=== PATIENT | male | born 1995 | race Caucasian/White ===

== ENCOUNTER 2017-04-19 15:45 | Emergency (ER) | payer BC ==
[~2017-04-19] VITALS: Ht 177.8 cm; Wt 87.0 kg
[2017-04-19 15:47] VITALS: TEMP 37; Ht 177.8 cm; Wt 87.0 kg
[2017-04-19] MEDS ORDERED: SODIUM CHLORIDE 0.9% 1000ML 1,000 ML IV STA (16:25)
[2017-04-19] MEDS ORDERED: CYAN1CAP3 PO (16:25)
[2017-04-19] MEDS ORDERED: MULT-506 PO (16:25)
[2017-04-19] MEDS ORDERED: KETOROLAC TROMETHAMINE 30 MG/ML VIAL IV STA (16:25)
[2017-04-19] MEDS ORDERED: ACET-1256 PO (16:25)
[2017-04-19] MEDS ORDERED: ONDANSETRON INJ 2 MG/ML 2 ML VIAL IV STA ×2 (16:25)
[2017-04-19 17:17] LABS: BUN/CREATININE RATIO 11.3 (10-20); CALCIUM 9.2 mg/dl (8.5-10.1); POTASSIUM 3.8 mmol/L (3.5-5.1)
[2017-04-19 17:27] LABS: BASO % 0.6 %; BASO ABS # 0.04 K/uL (0-0.2); COMPLETE YES; EOS % 2.9 %; HEMATOCRIT 43.1 % (42-52); LYMPH % 36.8 %; LYMPH ABS # 2.53 K/uL (1.2-3.4); MEAN CELL VOLUME 83.5 fL (80-100); MEAN CORPUSCULAR HEMOGLOBIN 28.9 pg (25-34); MEAN CORPUSCULAR HGB CONC 34.6 g/dl (32-36); MEAN PLATELET VOLUME 9.8 fL (7.4-10.4); MONO % 6.8 %; NEUT % 52.9 %; PLATELET COUNT 235 K/uL (130-400); RED BLOOD COUNT 5.16 M/uL (4.7-6.1); WHITE BLOOD COUNT 6.88 K/uL (4.8-10.8)
--- NOTE | 2017-04-19 17:36 | DIAGNOSTIC IMAGING REPORT ---
GALLBLADDER-ABD LIMITED CLINICAL HISTORY: ruq/eppigastric abd pain pain TECHNIQUE: Ultrasound COMPARISON STUDY: None FINDINGS: Contracted gallbladder. No shadowing gallstones. Common mild that 4 mm. Liver is uniform. Pancreas and right kidney are unremarkable. No evidence for right renal hydronephrosis. IMPRESSION: Contracted gallbladder. Otherwise negative ultrasound. The above report was generated using voice recognition software. It may contain grammatical, syntax or spelling errors. Electronically signed by: Alcides Orlando M.D. 04/19/2017 5:34 PM Dictated Date/Time: 04/19/2017 5:33 PM
[2017-04-19 17:46] LABS: URINE APPEARANCE TURBID (CLEAR); URINE BILIRUBIN NEG (NEG); URINE COLOR YELLOW; URINE EPITHELIAL CELL AUTO 0-5 /lpf (0-5); URINE NITRITE NEG (NEG); URINE PH 8.5 (4.5-7.5); URINE SPECIFIC GRAVITY 1.026 (1.000-1.030); UROBILINOGEN NEG (NEG); ZZUR CULT IF INDIC CLEAN CATCH NO
[2017-04-19 17:51] LABS: MANUAL MICROSCOPIC REQUIRED? NO; REVIEW REQ? NO
--- NOTE | 2017-04-19 19:12 | DIAGNOSTIC IMAGING REPORT ---
HEAD WITHOUT CONTRAST (CT) CT DOSE: 537.48 mGy.cm HISTORY: Mental status change confusion francis TECHNIQUE: Multiaxial CT images of the head were performed without the use of intravenous contrast. A dose lowering technique was utilized adhering to the principles of ALARA. Comparison: None. Findings: The paranasal sinuses and mastoid air cells are clear. The calvarium and skull base are intact. The ventricles and sulci are within normal limits. There is no mass, hematoma, midline shift, or acute infarct. Impression: No acute intracranial abnormality. The above report was generated using voice recognition software. It may contain grammatical, syntax or spelling errors. Electronically signed by: Alcides Orlando M.D. 04/19/2017 7:11 PM Dictated Date/Time: 04/19/2017 7:08 PM
[2017-04-19 19:32] VITALS: BP 124/63; PULSE 57; O2SAT 98
--- NOTE | 2017-04-19 20:13 | EMERGENCY ROOM VISIT NOTE ---
History Report prepared by Arsalan: Juanita Bennett Under the Supervision of: Dr. Jerrod Muhammad D.O. First contact with patient: 16:06 Chief Complaint: NAUSEA Stated Complaint: HAZY THINKING, NO ENERGY, FEELS FEVERISH, Nursing Triage Summary: pt c/o 1 month of lack of energy and not feeling well was tested for lymes and other lab work and everything came back WNL per mom History of Present Illness The patient is a 21 year old male who presents to the Emergency Room with complaints of worsening lack of energy that began one month ago. He currently rates his discomfort as a 4/10 in severity. The patient states that over the past month he has had difficulty focusing at school and has noticed a decrease in energy. The patient's mother states that the patient has been slow to respond and states that his symptoms have been progressively worsening. The patient reports that since Sunday he has been experiencing abdominal pain with eating. He additionally reports an intermittent cough. The patient stats that he had a headache this morning. He denies any recent tick bite or rash. The patient states that he tested negative for Lyme Disease 2 weeks ago. He denies any drug or alcohol use. Pt denies change in vision, fevers, chest pain, shortness of breath, nausea, vomiting, diarrhea, pain with urination, and melena. Source of History: patient, parent (mother) Onset: one month ago Position: other (global) Symptom Intensity: 4/10 Quality: other (lack of energy) Timing: worsening Associated Symptoms: + headache, + cough, + abdominal pain Review of Systems See HPI for pertinent positives & negatives. A total of 10 systems reviewed and were otherwise negative. Past Medical & Surgical Medical Problems: (1) No Known Active Medical Problems Family History Cancer FH: gallbladder disease Heart disease Hypertension Social History Smoking Status: Never Smoker Smokeless Tobacco Use: No Alcohol Use: none Marital Status: single Housing Status: lives with family Occupation Status: student Current/Historical Medications Scheduled Cyanocobalamin (B-12), 2 CAP PO DAILY Multivitamin (Multivitamin), 1 TAB PO DAILY Scheduled PRN Acetaminophen (Tylenol), 1,000 MG PO DAILY PRN for Pain or Fever Allergies Coded Allergies: No Known Allergies (Unverified , 04/19/17) Physical Exam Vital Signs Date Time Temp Pulse Resp B/P (MAP) Pulse Ox O2 Delivery O2 Flow Rate FiO2 04/19/17 19:32 57 18 124/63 98 04/19/17 18:06 69 20 116/60 99 Room Air 04/19/17 15:47 37.0 79 16 128/82 98 Room Air Physical Exam GENERAL: alert, sitting up in bed, disheveled, well nourished, no distress, non- toxic EYE EXAM: normal conjunctiva. OROPHARYNX: no exudate, no erythema, lips, buccal mucosa, and tongue normal and mucous membranes are moist NECK: supple, no nuchal rigidity, no adenopathy, non-tender LUNGS: Clear to auscultation. Normal chest wall mechanics HEART: no murmurs, S1 normal and S2 normal ABDOMEN: abdomen soft, minimal tenderness in epigastric, normo-active bowel sounds, no masses, no rebound or guarding. BACK: Back is symmetrical on inspection and there is no deformity, no midline tenderness, no CVA tenderness. SKIN: no rashes and no bruising UPPER EXTREMITIES: upper extremities are grossly normal. LOWER EXTREMITIES: No pitting edema. NEURO EXAM: Normal sensorium, cranial nerves II-XII grossly intact, normal speech, no gross weakness of arms, no gross weakness of legs. Medical Decision & Procedures ER Provider Diagnostic Interpretation: Radiology results as stated below per my review and the radiologist's interpretation: GALLBLADDER-ABD LIMITED CLINICAL HISTORY: ruq/eppigastric abd pain pain TECHNIQUE: Ultrasound COMPARISON STUDY: None FINDINGS: Contracted gallbladder. No shadowing gallstones. Common mild that 4 mm. Liver is uniform. Pancreas and right kidney are unremarkable. No evidence for right renal hydronephrosis. IMPRESSION: Contracted gallbladder. Otherwise negative ultrasound. The above report was generated using voice recognition software. It may contain grammatical, syntax or spelling errors. Electronically signed by: Alcides Orlando M.D. 04/19/2017 5:34 PM Dictated Date/Time: 04/19/2017 5:33 PM HEAD WITHOUT CONTRAST (CT) CT DOSE: 537.48 mGy.cm HISTORY: Mental status change confusion francis TECHNIQUE: Multiaxial CT images of the head were performed without the use of intravenous contrast. A dose lowering technique was utilized adhering to the principles of ALARA. Comparison: None. Findings: The paranasal sinuses and mastoid air cells are clear. The calvarium and skull base are intact. The ventricles and sulci are within normal limits. There is no mass, hematoma, midline shift, or acute infarct. Impression: No acute intracranial abnormality. The above report was generated using voice recognition software. It may contain grammatical, syntax or spelling errors. Electronically signed by: Alcides Orlando M.D. 04/19/2017 7:11 PM Dictated Date/Time: 04/19/2017 7:08 PM Laboratory Results 04/19/17 16:40 Red Blood Count 5.16, Mean Corpuscular Volume 83.5, Mean Corpuscular Hemoglobin 28.9, Mean Corpuscular Hemoglobin Concent 34.6, Mean Platelet Volume 9.8, Neutrophils (%) (Auto) 52.9, Lymphocytes (%) (Auto) 36.8, Monocytes (%) (Auto) 6.8, Eosinophils (%) (Auto) 2.9, Basophils (%) (Auto) 0.6, Neutrophils # (Auto) 3.64, Lymphocytes # (Auto) 2.53, Monocytes # (Auto) 0.47, Eosinophils # (Auto) 0.20, Basophils # (Auto) 0.04 04/19/17 16:40 Test 04/19/17 16:40 White Blood Count 6.88 K/uL (4.8-10.8) Red Blood Count 5.16 M/uL (4.7-6.1) Hemoglobin 14.9 g/dL (14.0-18.0) Hematocrit 43.1 % (42-52) Mean Corpuscular Volume 83.5 fL (80-100) Mean Corpuscular Hemoglobin 28.9 pg (25-34) Mean Corpuscular Hemoglobin Concent 34.6 g/dl (32-36) Platelet Count 235 K/uL (130-400) Mean Platelet Volume 9.8 fL (7.4-10.4) Neutrophils (%) (Auto) 52.9 % Lymphocytes (%) (Auto) 36.8 % Monocytes (%) (Auto) 6.8 % Eosinophils (%) (Auto) 2.9 % Basophils (%) (Auto) 0.6 % Neutrophils # (Auto) 3.64 K/uL (1.4-6.5) Lymphocytes # (Auto) 2.53 K/uL (1.2-3.4) Monocytes # (Auto) 0.47 K/uL (0.11-0.59) Eosinophils # (Auto) 0.20 K/uL (0-0.5) Basophils # (Auto) 0.04 K/uL (0-0.2) RDW Standard Deviation 38.4 fL (36.4-46.3) RDW Coefficient of Variation 12.8 % (11.5-14.5) Immature Granulocyte % (Auto) 0.0 % Immature Granulocyte # (Auto) 0.00 K/uL (0.00-0.02) Urine Color YELLOW Urine Appearance TURBID (CLEAR) Urine pH 8.5 (4.5-7.5) Urine Specific [place] 1.026 (1.000-1.030) Urine Protein NEG (NEG) Urine Glucose (UA) NEG (NEG) Urine Ketones NEG (NEG) Urine Occult Blood NEG (NEG) Urine Nitrite NEG (NEG) Urine Bilirubin NEG (NEG) Urine Urobilinogen NEG (NEG) Urine Leukocyte Esterase NEG (NEG) Urine WBC (Auto) 0 /hpf (0-5) Urine RBC (Auto) 0-4 /hpf (0-4) Urine Hyaline Casts (Auto) 0 /lpf (0-5) Urine Epithelial Cells (Auto) 0-5 /lpf (0-5) Urine Bacteria (Auto) NEG (NEG) Anion Gap 9.0 mmol/L (3-11) Est Creatinine Clear Calc Drug Dose 122.7 ml/min Estimated GFR () 125.9 Estimated GFR (Non- 108.6 BUN/Creatinine Ratio 11.3 (10-20) Calcium Level 9.2 mg/dl (8.5-10.1) Total Bilirubin 0.3 mg/dl (0.2-1) Direct Bilirubin 0.1 mg/dl (0-0.2) Aspartate Amino Transf (AST/SGOT) 23 U/L (15-37) Alanine Aminotransferase (ALT/SGPT) 35 U/L (12-78) Alkaline Phosphatase 111 U/L (45-117) Total Protein 7.5 gm/dl (6.4-8.2) Albumin 4.1 gm/dl (3.4-5.0) Lipase 179 U/L (73-393) Laboratory results per my review. Medications Administered Medications (Trade) Dose Ordered Sig/Mushtaq Route Start Time Stop Time Status Last Admin Dose Admin Sodium Chloride 1,000 ml @ 999 mls/hr Q1H1M STAT IV 04/19/17 16:25 04/19/17 17:25 DC 04/19/17 16:50 999 MLS/HR Ondansetron HCl (Zofran Inj) 4 mg NOW STAT IV 04/19/17 16:25 04/19/17 16:27 DC 04/19/17 16:51 4 MG Ondansetron HCl (Zofran Inj) 4 mg NOW STAT IV 04/19/17 16:25 04/19/17 16:27 DC 04/19/17 16:51 4 MG Ketorolac Tromethamine (Toradol Inj) 30 mg NOW STAT IV 04/19/17 16:25 04/19/17 16:27 DC 04/19/17 16:50 30 MG ED Course ED COURSE: Vital signs were reviewed and showed normal vitals The patients medical record was reviewed The above diagnostic studies were performed and reviewed. ED treatments and interventions as stated above. 1613: The patient was evaluated in room B11B. A complete history and physical examination was performed. 1625: Ordered Toradol Inj 30 mg IV, Zofran Inj 4 mg IV, Zofran Inj 4 mg IV, Sodium Chloride 1000 ml @ 999 mls/hr IV. 1827: I reevaluated the patient and he is resting. I updated the patient and his family. He will have a CT scan. 1: Upon reevaluation, the patient is resting comfortably.I discussed my findings with the patient and he understands and agrees with the treatment plan. Based on the patients age, coexisting illnesses, exam and lab findings the decision to treat as an outpatient was made. The patient remained stable while under my care. The patient appeared well at the time of discharge. Medical Decision Differential diagnoses includes but is not limited to gastritis, peptic ulcer disease, GERD, gallbladder disease, pancreatitis, small bowel obstruction, acute coronary syndrome, pericarditis, ischemic bowel, irritable bowel disease, irritable bowel syndrome, appendicitis, diverticulitis, malignancy, hernia, urinary tract infection, torsion, perforation, trauma, infectious. Patient is a 21-year-old male who presents to the ER who has been feeling weak and tired for the past month. After this past Sunday he has been getting stomach pains in his epigastric region following eating. Recent Lyme test was negative. Follow-up with PCP. Vitals are unremarkable. CBC all BMP, LFTs, bilirubin lipase is unremarkable. UA was clean. Abdominal exam was completely benign. No signs meningitis or encephalitis on exam. Neuro exam is completely intact. No focal deficit. CT head was negative. Ultrasound right upper quadrant was unremarkable. Patient is completely awake alert oriented to person place time. Mom notes that the patient just complains being foggy but has not noticed anything focally. Patient was given fluids and Toradol and felt significant better. He was discharged follow-up with PCP. Discussed with Pt concerning signs and symptoms to watch out for. Pt was instructed to follow up with their PCP and discussed with the patient their option to return to the ED at anytime for persistent or worsening symptoms. The appropriate anticipatory guidance and out-patient management, including indications for return to the emergency department, were explained at length to the patient and understood. Medication Reconcilliation Current Medication List: was personally reviewed by me Blood Pressure Screening Patient's blood pressure: Normal blood pressure Blood pressure disposition: Did not require urgent referral Impression Primary Impression: Weakness Scribe Attestation The scribe's documentation has been prepared under my direction and personally reviewed by me in its entirety. I confirm that the note above accurately reflects all work, treatment, procedures, and medical decision making performed by me. Departure Information Dispostion Home / Self-Care Referrals No Doctor, Assigned (PCP) Forms HOME CARE DOCUMENTATION FORM, IMPORTANT VISIT INFORMATION Patient Instructions ED Weakness [facility] Additional Instructions Please follow up with your primary care doctor or if you are a student, [facility] with in the next 24 hours. Any worsening of your symptoms, please return to the ED immediately. This includes any fevers greater than 100.4, worsening pain, chest pain, shortness breath, persistent nausea, vomiting, unable to eat or drink, or any other concerning signs or symptoms from your standpoint.
== END 2017-04-19 19:33 | disposition home or self-care (01) ==
LOC: C.EDB 15:47
DX: R53.1 Weakness (principal); Z82.49 Family history of ischemic heart disease and other diseases of the circulatory system